=== PATIENT | male | born 1965 | race Caucasian/White ===

== ENCOUNTER 2021-10-16 05:45 | Day surgery (SDC) | payer OTHER ==
[2021-10-09 14:48] LABS: BASOPHILS # (AUTO) 0.1 X10'3 (0-0.2); BASOPHILS % (AUTO) 1.1 % (0-1); EOSINOPHILS # (AUTO) 0.2 X10'3 (0-0.9); EOSINOPHILS % (AUTO) 1.5 % (0-6); LYMPHOCYTES # (AUTO) 2.2 X10'3 (1.1-4.8); LYMPHOCYTES % (AUTO) 16.1 % (21-51); MEAN CORPUSCULAR HEMOGLOBIN 31.1 PG (27.0-31.0); MEAN CORPUSCULAR VOLUME 91.5 FL (78-98); MEAN PLATELET VOLUME 7.2 FL (7.4-10.4); MONOCYTES # (AUTO) 0.9 X10'3 (0-0.9); MONOCYTES % (AUTO) 6.8 % (2-12); NEUTROPHILS # (AUTO) 10.1 X10'3 (1.8-7.7); NEUTROPHILS % (AUTO) 74.5 % (42-75); PRE OP HEMOGLOBIN 14.3 g/dL (14.0-17.9); PRE OP PLATELET COUNT 328 X10'3 (140-440); RED BLOOD COUNT 4.59 X10'6 (4.70-6.10); RED CELL DISTRIBUTION WIDTH 13.9 % (11.5-14.5)
[2021-10-09 15:07] LABS: ALBUMIN 3.6 G/DL (3.4-5.0); ALBUMIN/GLOBULIN RATIO 0.9 (1.1-1.5); ALKALINE PHOSPHATASE 77 IU/L (46-116); BLOOD UREA NITROGEN 13 MG/DL (7-18); BUN/CREATININE RATIO 14.9 (5.4-32.0); CALCIUM 8.4 MG/DL (8.5-10.1); CHLORIDE 103 MMOL/L (99-107); CREATININE 0.87 MG/DL (0.60-1.10); PRE OP ALT 56 U/L (30-65); PRE OP ANION GAP 12 (8-16); PRE OP AST 23 U/L (10-37); PRE OP BILIRUB, TOTAL 0.7 MG/DL (0.0-1.0); PRE OP GLUCOSE 101 MG/DL (70-104); PRE OP SODIUM 142 MMOL/L (135-145); TOTAL CARBON DIOXIDE 27.3 MMOL/L (24-32); TOTAL PROTEIN 7.6 G/DL (6.4-8.2); eGFR > 90 ML/MIN
[2021-10-16] VITALS (18 sets, daily range): BP systolic 133–189; BP diastolic 75–101
[~2021-10-16] VITALS: Ht 180.3 cm; Wt 169.7 kg
[~2021-10-16 05:45] MED LIST: IBUP-1984 PO; ceFAZolin inj. 3,000 MG in normal saline 100ml IV soln 100 ML IV ONE; famotidine 20mg tablet PO ONE; ringers solution, lacted 1,000 ML IV SCH
[2021-10-16] MEDS ORDERED: labetalol 20mg/4ml (5mg/ml) syringe IV PRN (07:10)
[2021-10-16] MEDS ORDERED: morphine 4 MG/ML inj SYRINge IV PRN (07:10)
[2021-10-16] MEDS ORDERED: ringers solution, lacted 1,000 ML IV SCH (07:10)
[2021-10-16] MEDS ORDERED: fentaNYL/PF 50MCG/1 ML 2ML syringe IV PRN ×2 (07:10)
[2021-10-16] MEDS ORDERED: morphine 2 MG/ML inj. syringe IV PRN (07:10)
[2021-10-16] MEDS ORDERED: hydrALAZINE 20mg/ml inj. IV PRN (07:10)
[2021-10-16] MEDS ORDERED: ondansetron/PF 4mg/2ml inj IV PRN (07:10)
[2021-10-16] MEDS ORDERED: ROPIVAcaine 0.5% (5mg/ml) 30ml vial ONE (07:10)
[2021-10-16] MEDS ORDERED: MIDAZolam 1 MG/ML 5ML VIAL ONE (07:12)
[2021-10-16] MEDS ORDERED: fentaNYL /PF 50mcg/ml 5ml ampule ONE (07:13)
[2021-10-16] MEDS ORDERED: propofol inj 20 ML IV ONE ×2 (07:15)
[2021-10-16] MEDS ORDERED: LIDOcaine 2% (20mg/ml) 5ml vial ONE (07:15)
[2021-10-16] MEDS ORDERED: BUPIVAcaine/PF 2.5 mg/ml (0.25%) 30ml vial ONE (07:30)
[2021-10-16] MEDS ORDERED: dexamethasone sod phosphate 10mg/ml inj ONE (07:35)
[2021-10-16] MEDS ORDERED: ondansetron/PF 4mg/2ml inj ONE (07:35)
[2021-10-16] MEDS ORDERED: sevoflurane 250ml liquid IH ONE (07:35)
--- NOTE | 2021-10-16 09:21 | NUR ---
Received from OR via [facility], accompanied by Anesthesiologist DR PYLE and report given by Anesthesiolgist. PT IS GROGGY BUT WAKES EASILY TO VERBAL STIMULI AND ANSWERES QUESTIONS APPROPRIATELY. PT HAS DRSG TO RT SHOUDER THAT IS CDI, SHOULDER WRAP IN PLACE. PT HAS SLING IN PLACE. PT HAS 20G PIV TO LEFT FA WITH LR INFUSING @ 100ML/HR. PT STATES FINGERS FEEL NUMB ON RT HAND BUT HE IS ABLE TO MOVE FINGERS AND HAS GOOD PALPABLE RADIAL PULSE. PT DENIES PAIN AT THIS TIME. WILL CONTINUE TO ASSESS.
[2021-10-16] MEDS ORDERED: HYDROcodone/acetaminophen 10/325mg tab PO PRN (09:55)
--- NOTE | 2021-10-16 12:11 | NUR ---
ALL DISCHARGE CRITERIA HAS BEEN MET. VSS, PAIN AT A TOLERABLE LEVEL, VOIDING AND ABLE TO SAFELY AMBULATE AND TRANSFER SELF. IV TAKEN OUT WITHOUT ANY COMPLICATIONS. ANETHESIA MADE AWARE OF PT'S O2 SAT RANGING FROM HIGH 80'S TO 93% ON RA AND OKAYED PT'S DISCHARGE. ALL DISCHARGE INSTRUCTIONS COVERED WITH PATIENT AND ALL QUESTIONS ANSWERED. PATIENT TAKEN OUT VIA WHEELCHAIR TO PERSONAL VEHICLE WHERE FAMILY/FRIEND DROVE PATIENT HOME.
== END 2021-10-16 12:08 | disposition home or self-care (01) ==
LOC: PAS 05:45
PROVIDERS: ATTEND Orthopaedic Surgery
DX: M75.81 Other shoulder lesions, right shoulder (principal); M75.41 Impingement syndrome of right shoulder; M19.011 Primary osteoarthritis, right shoulder; M75.51 Bursitis of right shoulder; Z79.899 Other long term (current) drug therapy; I10 Essential (primary) hypertension; Z98.890 Other specified postprocedural states
CPT/HCPCS: 29823; 36415; 64415; 71046; 76942; 80053; 82948; 85025; 87811; 93005; J0690; J2250; J2704; J2795; J3010; J3490; J7120; Z7506; Z7508; Z7512; A4565; A4615; A4618; A6253; A6449; A7000; J1100; J2405

== ENCOUNTER 2023-05-09 07:28 | Observation (INO) | payer OTHER ==
[2023-05-03 15:41] LABS: BASOPHILS % (AUTO) 0.2 % (0-1); EOSINOPHILS # (AUTO) 0.3 X10'3 (0-0.9); EOSINOPHILS % (AUTO) 2.1 % (0-6); LYMPHOCYTES % (AUTO) 15.7 % (21-51); MEAN CORPUSCULAR HGB CONC 33.6 g/dL (33.0-36.5); MEAN CORPUSCULAR VOLUME 95.4 FL (78-98); MEAN PLATELET VOLUME 7.3 FL (7.4-10.4); MONOCYTES # (AUTO) 0.9 X10'3 (0-0.9); MONOCYTES % (AUTO) 7.5 % (2-12); NEUTROPHILS # (AUTO) 9.4 X10'3 (1.8-7.7); NEUTROPHILS % (AUTO) 74.5 % (42-75); PRE OP HEMOGLOBIN 14.8 g/dL (14.0-17.9); PRE OP PLATELET COUNT 338 X10'3 (140-440); PRE OP WHITE BLOOD COUNT 12.7 10'3 (4.8-10.8); RED BLOOD COUNT 4.61 X10'6 (4.70-6.10); RED CELL DISTRIBUTION WIDTH 13.5 % (11.5-14.5)
[2023-05-03 15:59] LABS: ALBUMIN 3.6 G/DL (3.4-5.0); ALBUMIN/GLOBULIN RATIO 0.9 (1.1-1.5); ALKALINE PHOSPHATASE 61 IU/L (46-116); BLOOD UREA NITROGEN 11 MG/DL (7-18); BUN/CREATININE RATIO 12.1 (10.0-20.0); CALCIUM 8.7 MG/DL (8.5-10.1); CHLORIDE 104 MMOL/L (99-107); CREATININE 0.91 MG/DL (0.60-1.10); PRE OP ALT 49 U/L (30-65); PRE OP ANION GAP 9 (8-16); PRE OP AST 30 U/L (10-37); PRE OP BILIRUB, TOTAL 0.8 MG/DL (0.0-1.0); PRE OP GLUCOSE 97 MG/DL (70-104); PRE OP POTASSIUM 4.2 MMOL/L (3.4-5.1); PRE OP SODIUM 141 MMOL/L (135-145); TOTAL CARBON DIOXIDE 27.6 MMOL/L (24-32); TOTAL PROTEIN 7.5 G/DL (6.4-8.2); eGFR 86 ML/MIN
[2023-05-09] VITALS (35 sets, daily range): BP systolic 92–188; BP diastolic 43–102; PULSE 70–95; RESP 12–19; TEMP 96.1–98.8; O2SAT 87–98
[~2023-05-09] VITALS: Ht 180.3 cm; Wt 173.9 kg
[2023-05-09] MEDS: cefazolin 2gm/D5W 100mL 100 ML IV ONE (05:30)
[~2023-05-09 07:28] MED LIST changes: -IBUP-1984 PO; +NO HOME MEDS; -ceFAZolin inj. 3,000 MG in normal saline 100ml IV soln 100 ML IV ONE; -famotidine 20mg tablet PO ONE; -ringers solution, lacted 1,000 ML IV SCH
[2023-05-09] MEDS: ringers solution, lacted 1,000 ML IV SCH (08:05)
[2023-05-09] MEDS: famotidine 20mg tablet PO ONE (08:05)
[2023-05-09] MEDS ORDERED: BUPIVAcaine 2.5mg/ml inj 50ml vial (contains preservative) ONE (09:24)
[2023-05-09] MEDS ORDERED: sevoflurane 250ml liquid IH ONE (10:00)
[2023-05-09] MEDS ORDERED: MIDAZolam 1 MG/ML 5ML VIAL ONE (10:00)
[2023-05-09] MEDS ORDERED: fentaNYL /PF 50mcg/ml 5ml ampule ONE (10:01)
[2023-05-09] MEDS ORDERED: HYDROcodone/acetaminophen 10/325mg tab PO PRN (10:20)
[2023-05-09] MEDS ORDERED: ROPIVAcaine 0.5% (5mg/ml) 30ml vial ONE (11:03)
[2023-05-09] MEDS ORDERED: propofol inj 20 ML IV ONE ×2 (11:03)
[2023-05-09] MEDS ORDERED: dexamethasone sod phosphate 4mg/ml inj. ONE (11:03)
[2023-05-09] MEDS ORDERED: succinylcholine 20mg/ml inj IV ONE (11:03)
[2023-05-09] MEDS ORDERED: rocuronium 10mg/ml inj IV ONE (11:03)
[2023-05-09] MEDS ORDERED: ceFAZolin 1000mg inj ONE (11:23)
[2023-05-09] MEDS ORDERED: meperidine/PF 25mg/ml syringe IV PRN ×3 (12:00)
[2023-05-09] MEDS ORDERED: morphine 2 MG/ML inj. syringe IV PRN (12:00)
[2023-05-09] MEDS ORDERED: ROPIVAcaine 0.2% (10 MG/5 ML) BOLUS INJECTION INTERSCALE PRN (12:00)
[2023-05-09] MEDS ORDERED: ondansetron/PF 4mg/2ml inj IV PRN ×2 (12:00→14:55)
[2023-05-09] MEDS ORDERED: morphine 4 MG/ML inj SYRINge IV PRN (12:00)
[2023-05-09] MEDS ORDERED: ringers solution, lacted 1,000 ML IV SCH (12:00)
[2023-05-09] MEDS ORDERED: enalaprilat dihydrate 2.5mg/2ml vial IV PRN (12:00)
[2023-05-09] MEDS ORDERED: proCHLORperazine 10 MG/2 ml inj IV PRN (12:00)
[2023-05-09] MEDS ORDERED: ondansetron/PF 4mg/2ml inj ONE (12:20)
[2023-05-09] MEDS ORDERED: sugammadex 200mg/2ml injection IV ONE (12:24)
[2023-05-09] MEDS: labetalol 20mg/4ml (5mg/ml) syringe IV PRN (12:53)
[2023-05-09] MEDS: ROPIVAcaine 0.2%/PF PUMP/bolus 545 ML INTERSCALE SCH (13:34)
[2023-05-09] MEDS ORDERED: HYDROmorphone 1 mg/ml syringe IV PRN (14:55)
[2023-05-09] MEDS ORDERED: diphenhydrAMINE 25mg capsule PO PRN ×2 (14:55)
[2023-05-09] MEDS ORDERED: HYDROmorphone inj. 0.5 MG/0.5 ML DISP.SYRIN IV PRN (14:55)
[2023-05-09] MEDS ORDERED: oxyCODONE IR 5mg (immed. release) tablet PO PRN ×2 (14:55)
[2023-05-09] MEDS ORDERED: bisacodyl 10mg suppository rectal RC PRN (14:55)
[2023-05-09] MEDS ORDERED: acetaminophen 325mg tablet PO PRN (14:55)
[2023-05-09] MEDS ORDERED: magnesium hydroxide 30ml (MOM) UD suspension PO PRN (14:55)
[2023-05-09] MEDS: ceFAZolin/D5W- 1GM premix 50 ML IV SCH (17:05)
[2023-05-09] MEDS: acetaminophen 325mg tablet PO SCH (21:14)
[2023-05-09] MEDS: sennosides 8.6mg tablet PO SCH (21:14)
[2023-05-09] MEDS: potassium cl 20mEq in 1/2 NS 1,000 ML IV SCH (21:15)
[2023-05-10] MEDS: ceFAZolin/D5W- 1GM premix 50 ML IV ONE
[2023-05-10] MEDS: vancomycin/NS 1 GM ADD-VANTAGE 250 ML IV SCH (01:13)
[2023-05-10 02:00] VITALS: BP 119/68; PULSE 78; RESP 16; TEMP 98; O2SAT 96
[2023-05-10 06:00] VITALS: BP 136/70; PULSE 69; RESP 20; TEMP 97.8; O2SAT 95
[2023-05-10 07:19] LABS: BASOPHILS # (AUTO) 0.1 X10'3 (0-0.2); BASOPHILS % (AUTO) 0.4 % (0-1); EOSINOPHILS % (AUTO) 0.1 % (0-6); HEMATOCRIT 42.1 % (42.0-52.0); HEMOGLOBIN 13.8 g/dl (14.0-17.9); LYMPHOCYTES # (AUTO) 1.7 X10'3 (1.1-4.8); LYMPHOCYTES % (AUTO) 8.8 % (21-51); MEAN CORPUSCULAR HEMOGLOBIN 31.4 PG (27.0-31.0); MEAN CORPUSCULAR HGB CONC 32.9 g/dL (33.0-36.5); MEAN CORPUSCULAR VOLUME 95.4 FL (78-98); MEAN PLATELET VOLUME 7.9 FL (7.4-10.4); MONOCYTES % (AUTO) 5.5 % (2-12); NEUTROPHILS # (AUTO) 16.2 X10'3 (1.8-7.7); NEUTROPHILS % (AUTO) 85.2 % (42-75); PLATELET COUNT 329 X10'3 (140-440); RED BLOOD COUNT 4.41 X10'6 (4.70-6.10); RED CELL DISTRIBUTION WIDTH 13.2 % (11.5-14.5)
[2023-05-10 07:31] LABS: ANION GAP 6 (8-16); CHLORIDE 102 MMOL/L (99-107); POTASSIUM 4.3 MMOL/L (3.5-5.1); SODIUM 138 MMOL/L (135-145); TOTAL CARBON DIOXIDE 30.3 MMOL/L (24-32)
[2023-05-10 08:50] VITALS: RESP 22; O2SAT 95
[2023-05-10] MEDS: celeCOXIB 100mg capsule PO SCH (08:50)
[2023-05-10] MEDS: aspirin 325mg tablet PO SCH (08:51)
[2023-05-10 10:00] VITALS: BP 141/61; PULSE 63; RESP 16; TEMP 97.9; O2SAT 93
[2023-05-10] MEDS ORDERED: celeCOXIB 100mg capsule PO SCH (20:00)
[2023-05-11] MEDS ORDERED: acetaminophen 325mg tablet PO PRN (13:15)
== END 2023-05-10 12:42 | disposition home or self-care (01) ==
LOC: PAS 07:28 → ORTHO 4S 14:51
PROVIDERS: ADMIT Orthopaedic Surgery; ATTEND Orthopaedic Surgery
DX: M75.121 Complete rotator cuff tear or rupture of right shoulder, not specified as traumatic (principal); M75.51 Bursitis of right shoulder; R09.02 Hypoxemia; I10 Essential (primary) hypertension; M75.41 Impingement syndrome of right shoulder; M75.01 Adhesive capsulitis of right shoulder; S46.211S Strain of muscle, fascia and tendon of other parts of biceps, right arm, sequela; E66.01 Morbid (severe) obesity due to excess calories; G89.29 Other chronic pain; Z99.81 Dependence on supplemental oxygen; Z87.891 Personal history of nicotine dependence; Z79.899 Other long term (current) drug therapy
CPT/HCPCS: 29827; 36415; 80051; 80053; 82948; 85025; 96365; 96366; 96367; 96375; 96376; 97110; 97161; 97530; C1713; G0378; J0330; J0690; J1100; J2250; J2405; J2704; J2795; J3010; J3370; J3480; J3490; J7040; J7120; A4565; A4618; A6253; A6449; A7000